=== PATIENT | male | born 1980 | race Caucasian/White ===

== ENCOUNTER 2021-01-16 14:39 | Emergency (ER) | payer MEDICARE, MEDICAID, SELFPAY ==
[2021-01-16 14:41] VITALS: BP 137/84; PULSE 94; RESP 18; TEMP 36.8; O2SAT 100; BMI 23.8
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
[2021-01-16 15:15] LABS: Bacteria 0 SEEN /hpf (None Seen); Mucous, Urine 0 SEEN /hpf (<or=2+); Red Blood Cells-Urine 0 SEEN /hpf (0-5); Squamous Epithelial Cells - UA 0 SEEN /hpf (0-5); White Blood Cells 0 SEEN /hpf (0-5)
[2021-01-16 15:18] LABS: Hemoglobin 9.3 g/dL (13.0-16.5); Mean Corp Hgb Conc 37.2 g/dL (32-36); Mean Corpuscular Hgb 36.3 pg (27.0-32.0); Mean Corpuscular Volume 97.7 fL (80-94); Mean Platelet Vol. 10.6 fl (6.2-12.0); POSITIVE COUNT YES; POSITIVE DIFFERENTIAL YES; POSITIVE MORPHOLOGY YES; RBC Distribution Width CV 14.9 % (11.6-14.6); RBC Distribution Width SD 52.9 fl (35.1-43.9); Red Blood Count 2.56 M/mm3 (4.6-6.2); White Blood Count 1.8 K/mm3 (4.4-11.0)
[2021-01-16 15:21] LABS: Color, Urine Straw (Yellow); Glucose, Dipstick Normal (Normal); Ketone-Dipstick Negative (Negative); Leukocyte Esterase-Dipstick Negative /ul (Negative); Nitrite-Dipstick Negative (Negative); Occult Blood-Urine Negative /ul (Negative); Protein-Dipstick Negative (Negative); Specific Gravity, Urine 1.005 (1.002-1.030); Urine Bilirubin Dipstick Negative (Negative); Urine Clarity Clear (Clear); Urine Urobilinogen Normal (Normal)
[2021-01-16 15:23] LABS: Differential Indicated MANUAL DIFF; Platelet Count 12 K/mm3 (150-450)
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
[2021-01-16 15:31] LABS: Anion Gap 7 (5-15); BUN 5 mg/dL (7-18); BUN/Creat Ratio 6.4 RATIO (10-20); Calcium,Total 8.5 mg/dL (8.5-10.1); Chloride 91 mmol/L (98-107); Creatinine, Serum 0.78 mg/dL (0.70-1.30); EST Glomerular Filtration Rate 117 mL/min (>60); Est Glom Filt Rate - Afr Amer 141 mL/min (>60); Estimated Creatinine Clearance 131.29 ml/min; Glucose 96 mg/dL (74-106); Potassium 3.9 mmol/L (3.5-5.1); Sodium Level 125 mmol/L (136-145)
[2021-01-16 15:45] LABS: International Normalized Ratio 1.1; Prothrombin Time (Protime)PT. 13.9 SECONDS (11.7-14.9)
[2021-01-16 15:46] LABS: Partial Thromboplast Time 31.5 Seconds (24.1-36.2)
[2021-01-16 15:54] LABS: Blast 5 % (0-0); Lymphocyte 48 % (19-41); Monocyte 7 % (0-10); Neutrophil-Band 4 % (0-5); Neutrophil-Segmented 36 % (47-70); Total Cells Counted 100 (MANUAL DIFF)
[2021-01-16 15:55] LABS: Hypochromasia 1+; Red Cell Morphology N CYTIC NORMAL (NORM C&C)
[2021-01-16 15:56] LABS: Platelet Estimate MKD DEC (ADEQ)
[2021-01-16 15:57] LABS: Absolute Lymphocyte Count 0.86 X10^3/uL (0.83-4.51); Absolute Neutrophil Count 0.7 X10^3/uL (2.0-7.7)
[2021-01-16 16:29] LABS: Osmolality, Urine 67 mOsm/KG
[2021-01-16 18:17] VITALS: BP 132/79; PULSE 81; RESP 18; O2SAT 97
[2021-01-19 13:20] LABS: Pathologist Review Reviewed
== END 2021-01-16 18:18 | disposition short-term general hospital (02) ==
PROVIDERS: Emergency Provider Emergency Medicine; PCP Family Medicine
DX: E87.1 Hypo-osmolality and hyponatremia (principal); D61.818 Other pancytopenia; S00.83XA Contusion of other part of head, initial encounter; C95.00 Acute leukemia of unspecified cell type not having achieved remission; Y04.2XXA Assault by strike against or bumped into by another person, initial encounter; Y92.89 Other specified places as the place of occurrence of the external cause; Y99.9 Unspecified external cause status; J44.9 Chronic obstructive pulmonary disease, unspecified; F42.9 Obsessive-compulsive disorder, unspecified; F25.9 Schizoaffective disorder, unspecified; E78.00 Pure hypercholesterolemia, unspecified
CPT/HCPCS: 70110; 70450; 71046; 80048; 81001; 83935; 85025; 85610; 85730; 99285; J7040; A4216